=== PATIENT | female | born 1965 | race Caucasian/White ===

== ENCOUNTER 2017-08-03 13:04 | Emergency (ER) | payer OTHER ==
[~2017-08-03] VITALS: Ht 167.6 cm; Wt 80.3 kg
[2017-08-03 13:15] VITALS: Ht 167.6 cm; Wt 80.3 kg
[2017-08-03 15:58] VITALS: BP 127/74
== END 2017-08-03 15:58 | disposition home or self-care (01) ==
LOC: ED 13:04
DX: J98.01 Acute bronchospasm (principal); I10 Essential (primary) hypertension
CPT/HCPCS: 87804; J2930; J7613; J7644

== ENCOUNTER 2017-08-12 15:26 | Emergency (ER) | payer OTHER ==
[~2017-08-12] VITALS: Ht 167.6 cm; Wt 79.4 kg
[2017-08-12 15:56] VITALS: Ht 167.6 cm; Wt 79.4 kg
== END 2017-08-12 18:31 | disposition home or self-care (01) ==
LOC: ED 15:26
DX: S83.91XA Sprain of unspecified site of right knee, initial encounter (principal); I10 Essential (primary) hypertension; Z88.2 Allergy status to sulfonamides; X50.0XXA Overexertion from strenuous movement or load, initial encounter; Y93.89 Activity, other specified; Y92.89 Other specified places as the place of occurrence of the external cause; Y99.8 Other external cause status
CPT/HCPCS: Q0092